=== PATIENT | female | born 1960 ===

== ENCOUNTER 2016-07-11 18:28 | Inpatient (IN) | payer OTHER ==
[2016-07-11 18:28] VITALS: BMI 38.6
[2016-07-11] MEDS ORDERED: Iohexol 240 (50 ml) PO ONE (19:38)
[2016-07-11] MEDS ORDERED: Sodium Chloride 0.9% 1,000 ML IV STA ×2 (19:39→23:34)
[2016-07-11 20:02] LABS: BASO # 0.1 K/uL (0.0-0.2); BASO % 1.2 % (0.0-2.0); EOS # 0.1 K/uL (0.0-0.7); HEMATOCRIT 41.2 % (34.0-47.0); LYMPH # 1.3 K/uL (1.0-4.3); LYMPH % 17.7 % (20.0-40.0); MEAN CELL VOLUME 88.3 fl (81.0-99.0); MEAN CORPUSCULAR HEMOGLOBIN 29.6 pg (27.0-31.0); MEAN CORPUSCULAR HGB CONC 33.6 g/dL (33.0-37.0); MEAN PLATELET VOLUME 9.1 fl (7.2-11.7); MONO # 0.6 K/uL (0.0-0.8); MONO % 7.8 % (0.0-10.0); NEUT # 5.2 K/uL (1.8-7.0); NEUT % 72.3 % (50.0-75.0); NRBC % 0.1 % (0.0-0.0); RED CELL DISTRIBUTION WIDTH 12.5 % (11.5-14.5); WHITE BLOOD COUNT 7.2 K/uL (4.8-10.8)
--- NOTE | 2016-07-11 20:02 | ED PDOC ---
"HPI: Abdomen Time Seen by Provider: 07/11/16 18:53 Chief Complaint (Nursing): Abdominal Pain Chief Complaint (Provider): Abdominal Pain History Per: Patient History/Exam Limitations: no limitations Onset/Duration Of Symptoms: Days (yesterday), Worse Since (today) Outside of [place] travel?: No Current Symptoms Are (Timing): Constant Severity: Moderate Location Of Pain/Discomfort: Epigastric Associated Symptoms: Vomiting, Diarrhea. denies: Fever, Back Pain, Urinary Symptoms (dysuria), Other (hematemesis, hematochezia) Additional Complaint(s): Erica White is a 56 year old female, with a past medical history of an abdominal hernia, who presents to the emergency department for the evaluation of constant, epigastric abdominal pain, that the patient has been experiencing since yesterday. No medications were taken prior to arrival to help alleviate her pain. Associated episodes of non-bloody vomiting and diarrhea are currently present. Denies a fever, back pain, or dysuria. PMD: Ranjeet Dominguez Past Medical History Reviewed: Historical Data, Nursing Documentation, Vital Signs Vital Signs: Last Vital Signs Temp 98.4 F 07/12/16 07:43 Pulse 114 H 07/12/16 07:43 Resp 20 07/12/16 07:43 BP 105/71 07/12/16 07:43 Pulse Ox 95 07/12/16 07:43 - Medical History PMH: Asthma, Diabetes, HTN, Mitral Valve Prolapse Denies: Chronic Kidney Disease Other PMH: Abdominal Hernial, Ovarian Cancer - Surgical History Surgical History: Cholecystectomy, Endoscopy, Tonsillectomy, Other surgeries: Hysterectomy, Thyroidectomy, Colonoscopy - Family History Family History: States: No Known Family Hx - Social History Current smoker - smoking cessation education provided: No Ex-Smoker (has not smoked in the last 12 months): No Alcohol: None Drugs: Denies - Home Medications Home Medications: Ambulatory Orders Medication Instructions Recorded Losartan [Cozaar] 25 mg PO DAILY 12/15/15 metFORMIN [glucOPHAGE] 500 mg PO BIDPC 12/15/15 Metoprolol Succinate [Toprol XL] 25 mg PO DAILY 07/12/16 - Allergies Allergies/Adverse Reactions: Allergies Allergy/AdvReac Type Severity Reaction Status Date / Time doxycycline calcium AdvReac RASH Verified 12/09/15 08:41 [From Vibramycin] doxycycline hyclate AdvReac RASH Verified 12/09/15 08:41 [From Vibramycin] doxycycline monohydrate AdvReac RASH Verified 12/09/15 08:41 [From Vibramycin] latex AdvReac SWELLING Verified 12/09/15 08:42 Review of Systems ROS Statement: Except As Marked, All Systems Reviewed And Found Negative Constitutional: Negative for: Fever Gastrointestinal: Positive for: Vomiting, Abdominal Pain (epigastric), Diarrhea. Negative for: Hematochezia, Hematemesis Genitourinary Female: Negative for: Dysuria Musculoskeletal: Negative for: Back Pain Physical Exam - Reviewed Nursing Documentation Reviewed: Yes Vital Signs Reviewed: Yes - Physical Exam Appears: Positive for: Non-toxic, No Acute Distress, Uncomfortable Head Exam: Positive for: ATRAUMATIC, NORMOCEPHALIC Skin: Positive for: Normal Color, Warm, Dry Cardiovascular/Chest: Positive for: Tachycardia (mild). Negative for: Regular Rate, Rhythm (regular rhythm), Murmur Respiratory: Positive for: Normal Breath Sounds. Negative for: Respiratory Distress Gastrointestinal/Abdominal: Positive for: Normal Exam, Soft, Tenderness ( epigastric), Other (umbilical hernia present) Back: Positive for: Normal Inspection. Negative for: L CVA Tenderness, R CVA Tenderness Neurologic/Psych: Positive for: Alert, Oriented - Laboratory Results Result Diagrams: 07/12/16 06:50 07/12/16 06:50 - ECG O2 Sat by Pulse Oximetry: 100 (RA) Pulse Ox Interpretation: Normal - Progress Re-evaluation Time: 23:00 Condition: Re-examined, Unchanged - Physician Consult Information Time Consulting Physican Contacted: 23:30 Physician Contacted: John Padron Medical Decision Making Medical Decision Makin:53 Initial Impression: Abdominal pain Differential Diagnoses include, but are not limited to, small bowel obstruction , acute pancreatitis, gastroenteritis, colitis, and complications of abdominal hernia. Initial Plan: * CT Abdomen & Pelvis * Electrocardiogram * Complete Blood Count * Comprehensive Metabolic Panel * Lipase * Lactic Acid, Plasma * Urine Dip * Morphine 4 mg IVP * Iohexol 50 ml PO * Zofran 4 mg IVP * Sodium Chloride 0.9% 1,000 ml IV at 1,000 mls/hr * Reevaluation FINDINGS: Lower thorax: No acute findings. ABDOMEN: Liver: Fatty infiltration. Gallbladder and bile ducts: Cholecystectomy. No ductal dilation. Pancreas: No ductal dilation. No mass. Spleen: No splenomegaly. Adrenals: No mass. Kidneys and ureters: Few RIGHT renal cysts. No hydronephrosis. Stomach and bowel: Gastric banding. Segmental areas of underdistention of colon. Small to moderate ventral hernia containing mildly dilated, stool-filled loop of small bowel. Several mildly dilated small bowel loops proximal to hernia. Nondistended small bowel distal to hernia. No definite mural thickening. Appendix: Normal caliber. No inflammation. PELVIS: Bladder: Unremarkable. Page 1 of 2 ERICA CUTLER | Final Radiology Report Reproductive: Hysterectomy. ABDOMEN and PELVIS: Intraperitoneal space: No significant fluid collection. No free air. Bones/ joints: No acute fracture. Soft tissues: Laparotomy scar. Tiny umbilical hernia containing fat. Vasculature : Unremarkable. No abdominal aortic aneurysm. Lymph nodes: No pathologically enlarged lymph nodes. IMPRESSION: 1. Ventral hernia containing small bowel with probable obstruction. 2. Incidental/non-acute findings are described above. Scribe Attestation: Documented by George Ayala, acting as a scribe for Belkys Young MD. Provider Scribe Attestation: All medical record entries made by the Scribe were at my direction and personally dictated by me. I have reviewed the chart and agree that the record accurately reflects my personal performance of the history, physical exam, medical decision making, and the department course for this patient. I have also personally directed, reviewed, and agree with the discharge instructions and disposition. Disposition - Clinical Impression Clinical Impression: SBO (small bowel obstruction), Ventral hernia - Patient ED Disposition Is Patient to be Admitted: Yes Discussed With : Ranjeet Dominguez Doctor Will See Patient In The: ED Counseled Patient/Family Regarding: Studies Performed, Diagnosis - Disposition Disposition Time: 23:30 Condition: FAIR - Pt Status Changed To: Hospital Disposition Of: Inpatient - Admit Certification Admit to Inpatient:: After my assessment, the patient will require hospitalization for at least two midnights. This is because of the severity of symptoms shown, intensity of services needed, and/or the medical risk in this patient being treated as an outpatient. - POA Present On Arrival: None"
[2016-07-11 20:24] LABS: ALB/GLOB RATIO 1.3 (1.0-2.1); ALKALINE PHOSPHATASE 101 U/L (38-126); ALT/SGPT 87 U/L (9-52); AST/SGOT 50 U/L (14-36); BILIRUBIN,TOTAL 0.4 mg/dl (0.2-1.3); BLOOD UREA NITROGEN 14 mg/dl (7-17); CALCIUM 9.7 mg/dL (8.4-10.2); CARBON DIOXIDE 29 mmol/L (22-30); CHLORIDE 103 mmol/L (98-107); GFR AFRICAN-AMERICAN > 60; GLUCOSE,RANDOM 130 mg/dL (65-105); LIPASE 228 U/L (23-300); POTASSIUM 4.5 MMOL/L (3.6-5.0); SODIUM 141 mmol/l (132-148)
[2016-07-11] MEDS ORDERED: Iohexol 240 (50 ml) ONE (20:35)
[2016-07-11] MEDS ORDERED: Sodium Chloride 0.9% 50 ML IV ONE (22:33)
[2016-07-11] MEDS ORDERED: Iohexol 300 100 ML IJ ONE (22:33)
--- NOTE | 2016-07-11 23:29 | CT ---
EXAM: CT Abdomen and Pelvis With Intravenous Contrast CLINICAL HISTORY: 56 years old, female; Pain; Abdominal pain; Generalized; Prior surgery; Surgery date: 6+ months; Surgery type: Cholecystectomy, lap band, , hysterectomy; Additional info: Abdominal pain HX of hernia TECHNIQUE: Axial computed tomography images of the abdomen and pelvis with intravenous contrast. This CT exam was performed using one or more of the following dose reduction techniques: automated exposure control, adjustment of the mA and/or kV according to patient size, and/or use of iterative reconstruction technique. Coronal and sagittal reformatted images were created and reviewed. CONTRAST: 100 mL of Omnipaque administered intravenously. COMPARISON: CT - ABD PELVIS PO IV CONTRAST 05/20/2015 10:52:00 AM FINDINGS: Lower thorax: No acute findings. ABDOMEN: Liver: Fatty infiltration. Gallbladder and bile ducts: Cholecystectomy. No ductal dilation. Pancreas: No ductal dilation. No mass. Spleen: No splenomegaly. Adrenals: No mass. Kidneys and ureters: Few RIGHT renal cysts. No hydronephrosis. Stomach and bowel: Gastric banding. Segmental areas of underdistention of colon. Small to moderate ventral hernia containing mildly dilated, stool-filled loop of small bowel. Several mildly dilated small bowel loops proximal to hernia. Nondistended small bowel distal to hernia. No definite mural thickening. Appendix: Normal caliber. No inflammation. PELVIS: Bladder: Unremarkable. Reproductive: Hysterectomy. ABDOMEN and PELVIS: Intraperitoneal space: No significant fluid collection. No free air. Bones/joints: No acute fracture. Soft tissues: Laparotomy scar. Tiny umbilical hernia containing fat. Vasculature: Unremarkable. No abdominal aortic aneurysm. Lymph nodes: No pathologically enlarged lymph nodes. IMPRESSION: 1. Ventral hernia containing small bowel with probable obstruction. 2. Incidental/non-acute findings are described above.
[2016-07-11] MEDS ORDERED: Ciprofloxacin 400mg/200ml D5W 400 MG/200 ML BAG IVPB STA (23:52)
[2016-07-11] MEDS ORDERED: metroNIDAZOLE 500mg/100ml NS 100 ML IVPB STA (23:53)
[2016-07-12] MEDS ORDERED: metroNIDAZOLE 500mg/100ml NS 100 ML IVPB ONE (00:11)
[2016-07-12] MEDS ORDERED: Ciprofloxacin 400mg/200ml D5W 400 MG/200 ML BAG IVPB ONE (01:09)
--- NOTE | 2016-07-12 07:52 | CP.PCM.CON ---
<Hermelinda Dover - Last Filed: 07/12/16 07:45> History of Present Illness - History of Present Illness History of Present Illness: Surgery Consult: Dr. Padron Pt is a 56F with PMHx significant for DM and HTN who presented to [facility] with complaints of abdominal pain & N/V for 1 day. Pt states she started having severe generalized abdominal pain yesterday after eating with several episodes of non-bloody vomiting. She states she has had 1 similar episode in the past that was treated conservatively. Pt states her last BM was yesterday around 5PM and denies flatus. Pt admits to having a ventral hernia for about 2 years after she had her hysterectomy and has seen surgeons for possible repair. However, she was told her gastric band would need to be removed and she needs to loose weight before the hernia can be repaired which has delayed intervention. In the ER, a CT abdomen/pelvis was obtained which shows ventral hernia with loops of SB and possible obstruction. Surgery consulted to evaluate. Currently, pt states her pain has improved and she has not had any more episodes of vomiting. She continues to deny flatus or BM. Denies F/C, chest pain or SOB. PMHx: HTN, DM, Ovarian CA, Breast CA s/p radiation PSHx: LORENA-BSO, left breast mass excision, Gastric Band SocialHx: denies smoking or EtOH Review of Systems - Review of Systems All systems: reviewed and no additional remarkable complaints except (as per HPI ) Past Patient History - Infectious Disease Hx of Infectious Diseases: None - Past Medical History & Family History Past Medical History?: Yes - Past Social History Alcohol: None Drugs: Denies - CARDIAC Hx Cardiac Disorders: Yes Hx Hypertension: Yes - HEENT Other/Comment: uses contact lenses - RENAL Hx Chronic Kidney Disease: No - ENDOCRINE/METABOLIC Hx Endocrine Disorders: Yes Hx Diabetes Mellitus Type 2: Yes - GASTROINTESTINAL Hx Gastrointestinal Disorders: Yes (LAP BAND DONE 10 YEARS AGO) - GENITOURINARY/GYNECOLOGICAL Hx Ovarian Cancer: Yes - PSYCHIATRIC Hx Psychophysiologic Disorder: No - SURGICAL HISTORY Hx Surgeries: Yes Hx Section: Yes Hx Cholecystectomy: Yes Hx Hysterectomy: Yes - ANESTHESIA Hx Anesthesia: Yes Hx Anesthesia Reactions: Yes (N/V) Hx Malignant Hyperthermia: No Has any member of the family had a problem w/ anesthesia?: No Meds Allergies/Adverse Reactions: Allergies Allergy/AdvReac Type Severity Reaction Status Date / Time doxycycline calcium AdvReac RASH Verified 12/09/15 08:41 [From Vibramycin] doxycycline hyclate AdvReac RASH Verified 12/09/15 08:41 [From Vibramycin] doxycycline monohydrate AdvReac RASH Verified 12/09/15 08:41 [From Vibramycin] latex AdvReac SWELLING Verified 12/09/15 08:42 - Medications Medications: Current Medications Dextrose/Sodium Chloride (Dextrose 5%-0.9% Ns 500 Ml) 500 mls @ 85 mls/hr IV .Q5H53M [facility] Stop: 07/13/16 05:58 Ciprofloxacin (Cipro 400mg/200ml Dsw) 400 mg in 200 mls @ 200 mls/hr IVPB Q12 [facility] Metronidazole (Flagyl 500mg/100ml Ns) 100 mls @ 100 mls/hr IVPB Q8 [facility] Insulin Human Regular (Humulin R) 0 units SC ACCU-CHECK [facility] PRN Reason: Protocol Ketorolac Tromethamine (Toradol) 15 mg IVP Q6 PRN PRN Reason: Pain, moderate (4-7) Last Admin: 07/12/16 06:26 Dose: 15 mg Ondansetron HCl (Zofran Inj) 4 mg IVP Q4 PRN PRN Reason: Nausea/Vomiting Last Admin: 07/12/16 02:28 Dose: 4 mg Physical Exam - Constitutional Appears: Well, No Acute Distress - Head Exam Head Exam: ATRAUMATIC, NORMOCEPHALIC - Eye Exam Eye Exam: Normal appearance - ENT Exam Additional comments: NGT in place with 125cc of yellow output in canister since placement - Respiratory Exam Respiratory Exam: NORMAL BREATHING PATTERN - Cardiovascular Exam Cardiovascular Exam: Tachycardia - GI/Abdominal Exam GI & Abdominal Exam: Diminished Bowel Sounds, Soft, Tenderness (over ventral hernia ). absent: Distended, Guarding, Rebound - Extremities Exam Extremities exam: Positive for: pedal pulses present - Neurological Exam Neurological exam: Alert, Oriented x3 - Skin Skin Exam: Dry, Warm Results - Vital Signs Recent Vital Signs: Last Vital Signs Temp 98.4 F 07/12/16 07:43 Pulse 114 H 07/12/16 07:43 Resp 20 07/12/16 07:43 BP 105/71 07/12/16 07:43 Pulse Ox 95 07/12/16 07:43 - Labs Result Diagrams: 07/11/16 19:54 07/11/16 19:54 Labs: Laboratory Results - last 24 hr 07/12/16 06:31 POC Glucose (mg/dL) 163 H - Imaging and Cardiology CT scan - abdomen Status: Image reviewed by me, Report reviewed by me Assessment & Plan - Assessment and Plan (Free Text) Assessment: 56F with SBO Plan: - NGT in place; monitor output - serial abdominal exams - monitor for bowel function - encourage ambulation - d/w Dr. Vito Dover, PGY-2 Surgery <Stepan Infante - Last Filed: 07/12/16 10:39> History of Present Illness - History of Present Illness History of Present Illness: Patient was seen and examined at the bedside. Agree with resident's note above. Meds - Medications Medications: Current Medications Dextrose/Sodium Chloride (Dextrose 5%-0.9% Ns 500 Ml) 500 mls @ 85 mls/hr IV .Q5H53M [facility] Stop: 07/13/16 05:58 Last Admin: 07/12/16 08:42 Dose: 85 mls/hr Ciprofloxacin (Cipro 400mg/200ml Dsw) 400 mg in 200 mls @ 200 mls/hr IVPB Q12 [facility] Last Admin: 07/12/16 10:06 Dose: 200 mls/hr Metronidazole (Flagyl 500mg/100ml Ns) 100 mls @ 100 mls/hr IVPB Q8 [facility] Last Admin: 07/12/16 08:44 Dose: 100 mls/hr Insulin Human Regular (Humulin R) 0 units SC ACCU-CHECK [facility] PRN Reason: Protocol Last Admin: 07/12/16 08:45 Dose: 1 unit Ketorolac Tromethamine (Toradol) 15 mg IVP Q6 PRN PRN Reason: Pain, moderate (4-7) Last Admin: 07/12/16 06:26 Dose: 15 mg Ondansetron HCl (Zofran Inj) 4 mg IVP Q4 PRN PRN Reason: Nausea/Vomiting Last Admin: 07/12/16 02:28 Dose: 4 mg Physical Exam - GI/Abdominal Exam Additional comments: incarcerated supra-umbilical ventral hernia, tender over the the hernia, no rebound, no guarding Results - Vital Signs Recent Vital Signs: Last Vital Signs Temp 98.4 F 07/12/16 07:43 Pulse 114 H 07/12/16 07:43 Resp 20 07/12/16 07:43 BP 105/71 07/12/16 07:43 Pulse Ox 95 07/12/16 07:43 - Labs Result Diagrams: 07/12/16 06:50 07/12/16 06:50 Labs: Laboratory Results - last 24 hr 07/12/16 07/12/16 07/12/16 06:31 06:50 06:50 WBC 15.4 H D RBC 4.53 Hgb 13.2 Hct 40.0 MCV 88.3 MCH 29.1 MCHC 33.0 RDW 12.2 Plt Count 218 Sodium 141 Potassium 4.2 Chloride 103 Carbon Dioxide 26 Anion Gap 16 BUN 14 Creatinine 0.8 Est GFR ( Amer) > 60 Est GFR (Non-Af Amer) > 60 POC Glucose (mg/dL) 163 H Random Glucose 155 H Calcium 9.1 TSH 3rd Generation 0.84 Assessment & Plan - Assessment and Plan (Free Text) Assessment: 56 y.o. female with incarcerated ventral hernia Plan: - Keep NPO - IV fluids - NG tube to low continuous wall suction - Pain control - To OR for repair of incarcerated Ventral hernia
[2016-07-12 08:09] LABS: MEAN CELL VOLUME 88.3 fl (81.0-99.0); MEAN CORPUSCULAR HEMOGLOBIN 29.1 pg (27.0-31.0); RED CELL DISTRIBUTION WIDTH 12.2 % (11.5-14.5); WHITE BLOOD COUNT 15.4 K/uL (4.8-10.8)
[2016-07-12 08:19] LABS: BLOOD UREA NITROGEN 14 mg/dl (7-17); CALCIUM 9.1 mg/dL (8.4-10.2); CARBON DIOXIDE 26 mmol/L (22-30); CHLORIDE 103 mmol/L (98-107); GFR AFRICAN-AMERICAN > 60; GLUCOSE,RANDOM 155 mg/dL (65-105); POTASSIUM 4.2 MMOL/L (3.6-5.0); SODIUM 141 mmol/l (132-148)
[2016-07-12 08:45] LABS: THYROID STIMULATING HORMONE 0.84 mIU/ML (0.46-4.68)
[2016-07-12] MEDS: Insulin Regular 100 units/ml SC SCH ×3 (08:45→22:33)
--- NOTE | 2016-07-12 08:53 | CP.PCM.HP ---
History of Present Illness - History of Present Illness History of Present Illness: 56 y/o lady presented in ER with hx of abdominal pain and n/v x 1 day. No BM, no flatus. Hx of DM2, HTN, ca ovary, ca breast. CT scan reveled ventral hernia with obstruction. Present on Admission - Present on Admission Any Indicators Present on Admission: No Review of Systems - Constitutional Constitutional: As Per HPI - EENT Eyes: As Per HPI - Breasts Breasts: As Per HPI - Cardiovascular Cardiovascular: As Per HPI - Respiratory Respiratory: As Per HPI - Gastrointestinal Gastrointestinal: Nausea, Vomiting - Genitourinary Genitourinary: As Per HPI - Musculoskeletal Musculoskeletal: As Per HPI - Integumentary Integumentary: As Per HPI - Neurological Neurological: As Per HPI - Psychiatric Psychiatric: As Per HPI Past Patient History - Infectious Disease Hx of Infectious Diseases: None - Past Medical History & Family History Past Medical History?: Yes - Past Social History Alcohol: None Drugs: Denies - CARDIAC Hx Cardiac Disorders: Yes Hx Hypertension: Yes - PULMONARY Hx Respiratory Disorders: Yes Hx Asthma: Yes - NEUROLOGICAL Hx Neurological Disorder: No - HEENT Other/Comment: uses contact lenses - RENAL Hx Chronic Kidney Disease: No - ENDOCRINE/METABOLIC Hx Endocrine Disorders: Yes Hx Diabetes Mellitus Type 2: Yes - HEMATOLOGICAL/ONCOLOGICAL Hx Blood Disorders: Yes - INTEGUMENTARY Hx Dermatological Problems: No - MUSCULOSKELETAL/RHEUMATOLOGICAL Hx Musculoskeletal Disorders: No Hx Falls: No - GASTROINTESTINAL Hx Gastrointestinal Disorders: Yes (LAP BAND DONE 10 YEARS AGO) - GENITOURINARY/GYNECOLOGICAL Hx Ovarian Cancer: Yes - PSYCHIATRIC Hx Psychophysiologic Disorder: No - SURGICAL HISTORY Hx Surgeries: Yes Hx Section: Yes Hx Cholecystectomy: Yes Hx Hysterectomy: Yes - ANESTHESIA Hx Anesthesia: Yes Hx Anesthesia Reactions: Yes (N/V) Hx Malignant Hyperthermia: No Has any member of the family had a problem w/ anesthesia?: No Meds Allergies/Adverse Reactions: Allergies Allergy/AdvReac Type Severity Reaction Status Date / Time doxycycline calcium AdvReac RASH Verified 12/09/15 08:41 [From Vibramycin] doxycycline hyclate AdvReac RASH Verified 12/09/15 08:41 [From Vibramycin] doxycycline monohydrate AdvReac RASH Verified 12/09/15 08:41 [From Vibramycin] latex AdvReac SWELLING Verified 12/09/15 08:42 Physical Exam - Constitutional Appears: In Acute Distress - Head Exam Head Exam: ATRAUMATIC, NORMAL INSPECTION, NORMOCEPHALIC - Eye Exam Eye Exam: EOMI, Normal appearance, PERRL - ENT Exam ENT Exam: Mucous Membranes Moist - Respiratory Exam Respiratory Exam: Clear to Auscultation Bilateral - Cardiovascular Exam Cardiovascular Exam: REGULAR RHYTHM, +S1, +S2 - GI/Abdominal Exam GI & Abdominal Exam: Distended, Guarding, Tenderness - Extremities Exam Extremities exam: Positive for: normal inspection - Neurological Exam Neurological exam: Alert, CN II-XII Intact, Oriented x3 - Psychiatric Exam Psychiatric exam: Normal Affect - Skin Skin Exam: Normal Color Results - Vital Signs Recent Vital Signs: Last Vital Signs Temp 98.4 F 07/12/16 07:43 Pulse 114 H 07/12/16 07:43 Resp 20 07/12/16 07:43 BP 105/71 07/12/16 07:43 Pulse Ox 95 07/12/16 07:43 - Labs Result Diagrams: 07/12/16 06:50 07/12/16 06:50 Labs: Laboratory Results - last 24 hr 07/12/16 07/12/16 07/12/16 06:31 06:50 06:50 WBC 15.4 H D RBC 4.53 Hgb 13.2 Hct 40.0 MCV 88.3 MCH 29.1 MCHC 33.0 RDW 12.2 Plt Count 218 Sodium 141 Potassium 4.2 Chloride 103 Carbon Dioxide 26 Anion Gap 16 BUN 14 Creatinine 0.8 Est GFR ( Amer) > 60 Est GFR (Non-Af Amer) > 60 POC Glucose (mg/dL) 163 H Random Glucose 155 H Calcium 9.1 TSH 3rd Generation 0.84 Assessment & Plan (1) Diabetes 1.5, managed as type 2 Status: Chronic (2) Hypertensive cardiovascular disease Status: Chronic (3) Abdominal hernia with obstruction Status: Acute (4) Abdominal pain Status: Acute (5) Obesity (BMI 35.0-39.9 without comorbidity) Status: Chronic - Assessment and Plan (Free Text) Plan: Continue present rx Will follow surgical consult.
[2016-07-12] MEDS ORDERED: metroNIDAZOLE 500mg/100ml NS 100 ML IVPB SCH (09:00)
[2016-07-12] MEDS ORDERED: Ciprofloxacin 400mg/200ml D5W 400 MG/200 ML BAG IVPB SCH (09:00)
[2016-07-12] MEDS ORDERED: Rocuronium 10 mg/ml (5 ml) ONE ×2 (10:37→12:08)
[2016-07-12] MEDS ORDERED: Propofol 10 mg/ml Inj (20 ML) ONE ×2 (10:37→13:15)
[2016-07-12] MEDS ORDERED: Midazolam 2 MG/2 ML VIAL ONE (10:37)
[2016-07-12] MEDS ORDERED: Succinylcholine 200 mg/10 ml Inj IV ONE (10:37)
[2016-07-12] MEDS ORDERED: Bupivacaine 0.5% Inj(30mL) ONE (10:50)
[2016-07-12] MEDS ORDERED: Lidocaine 1% Inj (20ml) ONE (10:50)
[2016-07-12] MEDS ORDERED: Lactated Ringer's 1,000 ML IV ONE ×5 (10:59→15:55)
--- NOTE | 2016-07-12 11:04 | RAD ---
PROCEDURE: CHEST RADIOGRAPH, 1 VIEW HISTORY: pre op COMPARISON: 09/04/2015 FINDINGS: LUNGS: Clear. PLEURA: No pneumothorax or pleural fluid seen. CARDIOVASCULAR: Normal. OSSEOUS STRUCTURES: No significant abnormalities. VISUALIZED UPPER ABDOMEN: Normal. OTHER FINDINGS: Nasogastric tube extends to left upper quadrant of abdomen. IMPRESSION: No pulmonary infiltrate. No pleural effusion. Nasogastric tube present extending to left upper quadrant of abdomen.
[2016-07-12] MEDS ORDERED: Phenylephrine 10 mg/ml Inj ONE (11:54)
[2016-07-12] MEDS ORDERED: Neostigmine Methylsulfate 2 MG/2 ML ML IV ONE (12:57)
[2016-07-12] MEDS ORDERED: Neostigmine Methylsulfate 3mg/3ml Syringe IV ONE (12:57)
[2016-07-12] MEDS ORDERED: Sodium Chloride 0.9% 1,000 ML IV ONE ×2 (13:36)
[2016-07-12] MEDS ORDERED: DiphenhydrAMINE 50 mg/ml Inj IVP PRN (13:41)
[2016-07-12] MEDS ORDERED: Naloxone 0.4 mg/ml Inj (Adult) IVP PRN (13:41)
--- NOTE | 2016-07-12 13:44 | PCM.SURG1 ---
Surgeon's Initial Post Op Note - Surgeon's Notes Surgeon: Dr. Infante Lap Hand Tool: Dr. Coughlin PGY-2, Dr. Diaz PGY-1 Type of Anesthesia: General Endo Pre-Operative Diagnosis: Incarcerated incisional hernia Operative Findings: see operative report Post-Operative Diagnosis: same Operation Performed: 1. lysis of adhesions. 2. incisional hernia repair w/ mesh Specimen/Specimens Removed: hernia sac Estimated Blood Loss: EBL {In ML}: 50 Blood Products Given: N/A Drains Used: No Drains Post-Op Condition: Good Date of Surgery/Procedure: 07/12/16 Time of Surgery/Procedure: 12:00
[2016-07-12] MEDS: HYDROmorphone 0.5 mg/0.5 ml ISec IVP PRN ×2 (14:10→14:55)
--- NOTE | 2016-07-12 14:15 | OP ---
PROCEDURE DATE: 07/12/2016 PREOPERATIVE DIAGNOSIS: Incarcerated incisional hernia. POSTOPERATIVE DIAGNOSIS: Incarcerated incisional hernia. PROCEDURES: Repair of the incarcerated incisional hernia as well was extensive lysis of adhesions an d placement of the mesh. SURGEON: Stepan Infante MD PEDIATRIC RN: Ced. SECOND PEDIATRIC RN: Joe. ANESTHESIA: General with endotracheal intubation. INTRAVENOUS FLUIDS: Crystalloids. ESTIMATED BLOOD LOSS: 50 mL. INTRAOPERATIVE FINDINGS: Incarcerated incisional hernia with viable bowel and extensive intraabdomin al adhesions. SPECIMEN: Hernia sac. BRIEF HISTORY: The patient is a pleasant 56-year-old female who presented to the hospital complainin g of 1 day duration of severe pain around her hernia site/incisional hernia that she had after a hyst erectomy for the past 2 years. The patient also reported some nausea and vomiting and obstipation. Also CAT scan was significant for incarcerated small bowel and an incisional hernia supraumbilically. All the risks and benefits of the procedure were explained to the patient and, with the patient hav ing a full understanding of all the risks and benefits involved, informed consent was obtained and th e patient was taken to the operating room for above stated procedure. PROCEDURE: The patient was brought into the operating room and placed supine on the operating table. Bilateral Flowtron boots were applied to patient's lower extremities. After successful induction o f anesthesia and successful endotracheal intubation by the anesthesia team, Addison catheter was insert ed into the patient's urinary bladder, and subsequent to that the patient's abdomen was prepped with ChloraPrep stick and draped in the standard surgical fashion. Prior to the beginning of the procedur e, a timeout was called in the room and everyone in the room was in agreement. The patient received prophylactic Ancef antibiotics. Once this was accomplished, using a 10 blade scalpel knife, approxim ately 10 cm incision was made right on top of the hernia supraumbilically. Subsequent to that, disse ction was carried down with electrical cautery until the hernia sac was visualized. The hernia sac w as dissected off from the surrounding subcutaneous structures and then the hernia sac was opened and the intestine was inspected. There appeared to be extensive adhesions to the hernia sac. They were taken down bluntly as well as sharply with Metzenbaum scissor. I spent approximately 45 minutes lysi ng the adhesions from the hernia sac and anterior abdominal wall. Once all the adhesions were lysed and the bowel was completely freed up from the anterior abdominal wall, we made a decision to use 15 x 20 Covidien Symbotex dual-sided composite mesh. Mesh was placed inside of the patient's abdomen wi th the nonsticky side towards the bowel and, subsequent to that, the mesh was secured to the fascia c ircumferentially with #1 PDS in an interrupted fashion. Once this was accomplished, the sutures were tied up and the gaps in between the sutures were filled in with #1 PDS suture in an interrupted fash ion. Once the position of the mesh was satisfactory, the wound was copiously irrigated and dried, an d fascial layer was closed with a #1 PDS right on top of the mesh, and subsequent to that several shantal p dermal sutures with 3-0 Vicryl were placed and skin was closed with brendan. At that point in time , the patient's abdomen was washed and dried, and a clean dressing was applied to the incision site. The patient was successfully extubated by the anesthesia team, transferred to the stretcher and take n to the recovery room in a stable condition. At the end of the procedure, all instrument counts, ne edles and sponges were correct. Stepan Infante MD cc: [id number] TT: 07/12/2016 14:14:36 [email or web address]
--- NOTE | 2016-07-12 16:45 | CARD ---
APPROVED REPORT EKG Measurement Heart [id number] <Conclusion> Normal sinus rhythm Normal ECG
[2016-07-12] MEDS: metroNIDAZOLE 500mg/100ml NS 100 ML IVPB SCH (17:56)
[2016-07-12] MEDS: Dextrose 5%/0.9% NS 1,000 ML IV SCH (22:34)
[2016-07-12 23:43] LABS: RBC URINE 4 /hpf (0-3); URINE BACTERIA FEW (<OCC); URINE BILIRUBIN NEGATIVE (NEGATIVE); URINE BLOOD NEGATIVE (NEGATIVE); URINE COLOR YELLOW (YELLOW); URINE GLUCOSE (UA) NEG (Normal); URINE KETONE NEGATIVE (NEGATIVE); URINE LEUKOCYTE ESTERASE TRACE Leu/uL (Negative); URINE PROTEIN NEGATIVE (NEGATIVE); URINE UROBILINOGEN 0.2-1.0 mg/dL (0.2-1.0); WBC URINE 4 /hpf (0-5)
[2016-07-13] MEDS: metroNIDAZOLE 500mg/100ml NS 100 ML IVPB SCH ×2 (00:32→08:45)
[2016-07-13] MEDS: Dextrose 5%/0.9% NS 1,000 ML IV SCH (06:06)
[2016-07-13] MEDS: Insulin Regular 100 units/ml SC SCH ×3 (06:36→16:58)
[2016-07-13 07:19] LABS: HEMATOCRIT 37.5 % (34.0-47.0); MEAN CELL VOLUME 88.6 fl (81.0-99.0); MEAN CORPUSCULAR HEMOGLOBIN 29.4 pg (27.0-31.0); MEAN CORPUSCULAR HGB CONC 33.2 g/dL (33.0-37.0); RED CELL DISTRIBUTION WIDTH 12.4 % (11.5-14.5); WHITE BLOOD COUNT 9.5 K/uL (4.8-10.8)
[2016-07-13 07:48] LABS: BLOOD UREA NITROGEN 7 mg/dl (7-17); CALCIUM 8.1 mg/dL (8.4-10.2); CARBON DIOXIDE 27 mmol/L (22-30); CHLORIDE 104 mmol/L (98-107); GFR AFRICAN-AMERICAN > 60; GLUCOSE,RANDOM 145 mg/dL (65-105); POTASSIUM 3.8 MMOL/L (3.6-5.0); SODIUM 137 mmol/l (132-148)
[2016-07-13] MEDS: Lactated Ringer's 1,000 ML IV SCH ×3 (08:45→23:50)
--- NOTE | 2016-07-13 09:16 | CP.PCM.PN ---
<Speedy Diaz - Last Filed: 07/13/16 09:25> Subjective - Date & Time of Evaluation Date of Evaluation: 07/13/16 Time of Evaluation: 07:15 - Subjective Subjective: Patient seen and examined this morning. Complaining of abdominal pain, using VENUE MANAGER. NGT output: 50cc/24hrs. 1.9L/24hrs Addison output. Objective - Vital Signs/Intake and Output Vital Signs (last 24 hours): Temp Pulse Resp BP Pulse Ox 98.9 F 105 H 18 121/73 97 07/13/16 04:36 07/13/16 04:36 07/13/16 04:36 07/13/16 04:36 07/13/16 04:36 Intake and Output: 07/13/16 07/13/16 06:59 18:59 Intake Total 2800 Output Total 1550 Balance 1250 - Medications Medications: Current Medications Diphenhydramine HCl (Benadryl) 25 mg IVP Q6 PRN PRN Reason: Itching / Pruritus Famotidine (Pepcid) 20 mg IVP DAILY [facility] Hydromorphone HCl (Dilaudid 0.2 Mg/Ml Strategic Intelligence Officer) 0 mg IV PRN PRN; Protocol PRN Reason: Pain, severe (8-10) Last Admin: 07/12/16 16:00 Dose: 0.2 mg Lactated Ringer's (Lactated Ringer's) 1,000 mls @ 150 mls/hr IV .Q6H40M [facility] Last Admin: 07/13/16 08:45 Dose: 150 mls/hr Metronidazole (Flagyl 500mg/100ml Ns) 100 mls @ 100 mls/hr IVPB Q8 [facility] Last Admin: 07/13/16 08:45 Dose: 100 mls/hr Insulin Human Regular (Humulin R) 0 units SC ACCU-CHECK [facility] PRN Reason: Protocol Last Admin: 07/13/16 06:36 Dose: 1 unit Ketorolac Tromethamine (Toradol) 15 mg IVP Q6 PRN PRN Reason: Pain, moderate (4-7) Last Admin: 07/12/16 06:26 Dose: 15 mg Naloxone HCl (Narcan) 0.1 mg IVP Q2M PRN PRN Reason: Shortness of Breath Ondansetron HCl (Zofran Inj) 4 mg IVP Q4 PRN PRN Reason: Nausea/Vomiting Last Admin: 07/12/16 02:28 Dose: 4 mg Ondansetron HCl (Zofran Inj) 4 mg IVP Q8 PRN PRN Reason: Nausea/Vomiting - Labs Labs: 07/13/16 05:55 07/13/16 05:55 - Constitutional Appears: No Acute Distress - ENT Exam ENT Exam: Mucous Membranes Dry - Respiratory Exam Respiratory Exam: NORMAL BREATHING PATTERN - Cardiovascular Exam Cardiovascular Exam: Tachycardia, +S1, +S2 - GI/Abdominal Exam GI & Abdominal Exam: Soft, Tenderness. absent: Firm, Guarding, Rigid - Neurological Exam Neurological Exam: Alert, Awake, Oriented x3 - Psychiatric Exam Psychiatric exam: Normal Mood - Skin Skin Exam: Intact, Warm Assessment and Plan - Assessment and Plan (Free Text) Assessment: 56F s/p open incision hernia repair w/ mesh placement -NPO -IVF -D/C Addison Catheter -Abdominal binder -C/w analgesic -Encourage incentive spirometer use -OOB to chair -Encourage ambulation -Further recs per Dr. Infante <Stepan Infante - Last Filed: 07/13/16 10:06> Subjective - Date & Time of Evaluation Time of Evaluation: 10:00 - Subjective Subjective: Patient was seen and examined at the bedside. Agree with resident's note above. Objective - Vital Signs/Intake and Output Vital Signs (last 24 hours): Temp Pulse Resp BP Pulse Ox 99.4 F 117 H 18 109/65 96 07/13/16 09:57 07/13/16 09:57 07/13/16 09:57 07/13/16 09:57 07/13/16 09:57 Intake and Output: 07/13/16 07/13/16 06:59 18:59 Intake Total 2800 Output Total 1550 Balance 1250 - Medications Medications: Current Medications Diphenhydramine HCl (Benadryl) 25 mg IVP Q6 PRN PRN Reason: Itching / Pruritus Enoxaparin Sodium (Lovenox) 40 mg SC DAILY [facility] PRN Reason: Protocol Famotidine (Pepcid) 20 mg IVP DAILY [facility] Hydromorphone HCl (Dilaudid 0.2 Mg/Ml Strategic Intelligence Officer) 0 mg IV PRN PRN; Protocol PRN Reason: Pain, severe (8-10) Last Admin: 07/12/16 16:00 Dose: 0.2 mg Lactated Ringer's (Lactated Ringer's) 1,000 mls @ 150 mls/hr IV .Q6H40M [facility] Last Admin: 07/13/16 08:45 Dose: 150 mls/hr Metronidazole (Flagyl 500mg/100ml Ns) 100 mls @ 100 mls/hr IVPB Q8 [facility] Last Admin: 07/13/16 08:45 Dose: 100 mls/hr Insulin Human Regular (Humulin R) 0 units SC ACCU-CHECK [facility] PRN Reason: Protocol Last Admin: 07/13/16 06:36 Dose: 1 unit Ketorolac Tromethamine (Toradol) 15 mg IVP Q6 PRN PRN Reason: Pain, moderate (4-7) Last Admin: 07/12/16 06:26 Dose: 15 mg Naloxone HCl (Narcan) 0.1 mg IVP Q2M PRN PRN Reason: Shortness of Breath Ondansetron HCl (Zofran Inj) 4 mg IVP Q4 PRN PRN Reason: Nausea/Vomiting Last Admin: 07/12/16 02:28 Dose: 4 mg Ondansetron HCl (Zofran Inj) 4 mg IVP Q8 PRN PRN Reason: Nausea/Vomiting - Labs Labs: 07/13/16 05:55 07/13/16 05:55
--- NOTE | 2016-07-13 12:02 | CP.PCM.PN ---
Subjective - Date & Time of Evaluation Date of Evaluation: 07/13/16 Time of Evaluation: 12:05 - Subjective Subjective: Patient still c/o abdominal pain no BM no flatus, NGT in place. Post OP ileus, continue iv fluid NPO. Objective - Vital Signs/Intake and Output Vital Signs (last 24 hours): Temp Pulse Resp BP Pulse Ox 99.4 F 117 H 18 109/65 96 07/13/16 09:57 07/13/16 09:57 07/13/16 09:57 07/13/16 09:57 07/13/16 09:57 Intake and Output: 07/13/16 07/13/16 11:59 23:59 Intake Total 1800 Output Total 2350 Balance -550 - Medications Medications: Current Medications Diphenhydramine HCl (Benadryl) 25 mg IVP Q6 PRN PRN Reason: Itching / Pruritus Enoxaparin Sodium (Lovenox) 40 mg SC DAILY [facility] PRN Reason: Protocol Famotidine (Pepcid) 20 mg IVP DAILY [facility] Hydromorphone HCl (Dilaudid 0.2 Mg/Ml Bi Developer) 0 mg IV PRN PRN; Protocol PRN Reason: Pain, severe (8-10) Last Admin: 07/12/16 16:00 Dose: 0.2 mg Lactated Ringer's (Lactated Ringer's) 1,000 mls @ 150 mls/hr IV .Q6H40M [facility] Last Admin: 07/13/16 08:45 Dose: 150 mls/hr Metronidazole (Flagyl 500mg/100ml Ns) 100 mls @ 100 mls/hr IVPB Q8 [facility] Last Admin: 07/13/16 08:45 Dose: 100 mls/hr Insulin Human Regular (Humulin R) 0 units SC ACCU-CHECK [facility] PRN Reason: Protocol Last Admin: 07/13/16 06:36 Dose: 1 unit Ketorolac Tromethamine (Toradol) 15 mg IVP Q6 PRN PRN Reason: Pain, moderate (4-7) Last Admin: 07/12/16 06:26 Dose: 15 mg Metoprolol Tartrate (Lopressor) 12.5 mg PO Q12 [facility] Naloxone HCl (Narcan) 0.1 mg IVP Q2M PRN PRN Reason: Shortness of Breath Ondansetron HCl (Zofran Inj) 4 mg IVP Q4 PRN PRN Reason: Nausea/Vomiting Last Admin: 07/12/16 02:28 Dose: 4 mg Ondansetron HCl (Zofran Inj) 4 mg IVP Q8 PRN PRN Reason: Nausea/Vomiting - Labs Labs: 07/13/16 05:55 07/13/16 05:55 - Head Exam Head Exam: ATRAUMATIC, NORMAL INSPECTION, NORMOCEPHALIC - Eye Exam Eye Exam: EOMI, Normal appearance - ENT Exam ENT Exam: Mucous Membranes Moist - Neck Exam Neck Exam: Full ROM - Respiratory Exam Respiratory Exam: Clear to Ausculation Bilateral - Cardiovascular Exam Cardiovascular Exam: Tachycardia, REGULAR RHYTHM, +S1, +S2 - GI/Abdominal Exam GI & Abdominal Exam: Hypoactive Bowel Sounds - Extremities Exam Extremities Exam: Normal Inspection - Neurological Exam Neurological Exam: Alert, Awake, CN II-XII Intact, Oriented x3 - Psychiatric Exam Psychiatric exam: Normal Affect Assessment and Plan (1) Diabetes 1.5, managed as type 2 Status: Chronic (2) Hypertensive cardiovascular disease Status: Chronic (3) Abdominal hernia with obstruction Status: Acute (4) Abdominal pain Status: Acute (5) Obesity (BMI 35.0-39.9 without comorbidity) Status: Chronic - Assessment and Plan (Free Text) Assessment: Post OP ileus continue NPO, NGT and IVF Will follow with surgery Tachycardia f/u with cardiology restart beta adrien via NGT, EKG.
--- NOTE | 2016-07-13 12:02 | CP.PCM.CON ---
History of Present Illness - History of Present Illness History of Present Illness: THE PATIENT IS A 56 YEAR OLD FEMALE WHO UNDERWENT AN INCARCERATED VENTRAL HERNIA REPAIR YESTERDAY. SHE ALSO HAS A HISTORY OF HYPERTENSION, TYPE 2 DM, BREAST CA AND OVARIAN CA. SHE HAS AN NGT IN PLACE AND HAS BEEN NPO. CARDIOLOGY WAS CALLED TO SEE HER TODAY BECAUSE SHE WAS MILDLY TACHYCARDIC. SHE DENIES CHEST PAIN OR PALPITATIONS. SHE WAS ON METOPROLOL BEFORE SURGERY. SHE DENIES AND KNOWN HEART PROBLEMS BEFORE SURGERY SUCH CAD Past Patient History - Infectious Disease Hx of Infectious Diseases: None - Past Medical History & Family History Past Medical History?: Yes - Past Social History Alcohol: None Drugs: Denies - CARDIAC Hx Hypertension: Yes Hx Mitral Valve Prolapse: Yes - PULMONARY Hx Asthma: Yes - NEUROLOGICAL Hx Neurological Disorder: No - HEENT Other/Comment: uses contact lenses - RENAL Hx Chronic Kidney Disease: No - ENDOCRINE/METABOLIC Hx Endocrine Disorders: Yes Hx Diabetes Mellitus Type 2: Yes - HEMATOLOGICAL/ONCOLOGICAL Hx Blood Disorders: Yes - INTEGUMENTARY Hx Dermatological Problems: No - MUSCULOSKELETAL/RHEUMATOLOGICAL Hx Musculoskeletal Disorders: No Hx Falls: No - GASTROINTESTINAL Hx Gastrointestinal Disorders: Yes (LAP BAND DONE 10 YEARS AGO) - GENITOURINARY/GYNECOLOGICAL Hx Ovarian Cancer: Yes - PSYCHIATRIC Hx Psychophysiologic Disorder: No - SURGICAL HISTORY Hx Cholecystectomy: Yes Hx Tonsillectomy: Yes - ANESTHESIA Hx Anesthesia: Yes Hx Anesthesia Reactions: Yes (N/V) Hx Malignant Hyperthermia: No Has any member of the family had a problem w/ anesthesia?: No Meds Allergies/Adverse Reactions: Allergies Allergy/AdvReac Type Severity Reaction Status Date / Time doxycycline calcium AdvReac RASH Verified 12/09/15 08:41 [From Vibramycin] doxycycline hyclate AdvReac RASH Verified 12/09/15 08:41 [From Vibramycin] doxycycline monohydrate AdvReac RASH Verified 12/09/15 08:41 [From Vibramycin] latex AdvReac SWELLING Verified 12/09/15 08:42 - Medications Medications: Current Medications Diphenhydramine HCl (Benadryl) 25 mg IVP Q6 PRN PRN Reason: Itching / Pruritus Enoxaparin Sodium (Lovenox) 40 mg SC DAILY [facility] PRN Reason: Protocol Famotidine (Pepcid) 20 mg IVP DAILY [facility] Hydromorphone HCl (Dilaudid 0.2 Mg/Ml Tucking Machine Operator) 0 mg IV PRN PRN; Protocol PRN Reason: Pain, severe (8-10) Last Admin: 07/12/16 16:00 Dose: 0.2 mg Lactated Ringer's (Lactated Ringer's) 1,000 mls @ 150 mls/hr IV .Q6H40M [facility] Last Admin: 07/13/16 08:45 Dose: 150 mls/hr Metronidazole (Flagyl 500mg/100ml Ns) 100 mls @ 100 mls/hr IVPB Q8 [facility] Last Admin: 07/13/16 08:45 Dose: 100 mls/hr Insulin Human Regular (Humulin R) 0 units SC ACCU-CHECK [facility] PRN Reason: Protocol Last Admin: 07/13/16 06:36 Dose: 1 unit Ketorolac Tromethamine (Toradol) 15 mg IVP Q6 PRN PRN Reason: Pain, moderate (4-7) Last Admin: 07/12/16 06:26 Dose: 15 mg Metoprolol Tartrate (Lopressor) 12.5 mg PO Q12 [facility] Naloxone HCl (Narcan) 0.1 mg IVP Q2M PRN PRN Reason: Shortness of Breath Ondansetron HCl (Zofran Inj) 4 mg IVP Q4 PRN PRN Reason: Nausea/Vomiting Last Admin: 07/12/16 02:28 Dose: 4 mg Ondansetron HCl (Zofran Inj) 4 mg IVP Q8 PRN PRN Reason: Nausea/Vomiting Physical Exam - Respiratory Exam Respiratory Exam: Clear to Auscultation Bilateral - Cardiovascular Exam Cardiovascular Exam: Tachycardia, +S1, +S2 - GI/Abdominal Exam GI & Abdominal Exam: Hypoactive Bowel Sounds - Extremities Exam Extremities exam: Positive for: normal inspection - Additional Findings Additional findings: EKG ST, R 116 K+ 3.8 Results - Vital Signs Recent Vital Signs: Last Vital Signs Temp 99.4 F 07/13/16 09:57 Pulse 117 H 07/13/16 09:57 Resp 18 07/13/16 09:57 BP 109/65 07/13/16 09:57 Pulse Ox 96 07/13/16 09:57 - Labs Result Diagrams: 07/13/16 05:55 07/13/16 05:55 Labs: Laboratory Results - last 24 hr 07/12/16 07/12/1617 06:50 11:29 13:50 WBC RBC Hgb Hct MCV MCH MCHC RDW Plt Count Sodium Potassium Chloride Carbon Dioxide Anion Gap BUN Creatinine Est GFR ( Amer) Est GFR (Non-Af Amer) POC Glucose (mg/dL) 118 H Random Glucose Hemoglobin A1c 6.2 Calcium Urine Color Urine Clarity Urine pH Ur Specific [place] Urine Protein Urine Glucose (UA) Urine Ketones Urine Blood Urine Nitrate Urine Bilirubin Urine Urobilinogen Ur Leukocyte Esterase Urine RBC (Auto) Urine Microscopic WBC Urine Bacteria Blood Type O POSITIVE Antibody Screen Negative BBK History Checked Patient has bt 07/12/16 07/12/16 07/12/16 17:14 21:34 23:14 WBC RBC Hgb Hct MCV MCH MCHC RDW Plt Count Sodium Potassium Chloride Carbon Dioxide Anion Gap BUN Creatinine Est GFR ( Amer) Est GFR (Non-Af Amer) POC Glucose (mg/dL) 135 H 137 H Random Glucose Hemoglobin A1c Calcium Urine Color Yellow Urine Clarity Clear Urine pH 5.0 Ur Specific [place] 1.019 Urine Protein Negative Urine Glucose (UA) Neg Urine Ketones Negative Urine Blood Negative Urine Nitrate Negative Urine Bilirubin Negative Urine Urobilinogen 0.2-1.0 Ur Leukocyte Esterase Trace Urine RBC (Auto) 4 H Urine Microscopic WBC 4 Urine Bacteria Few H Blood Type Antibody Screen BBK History Checked 07/13/16 07/13/16 07/13/16 05:55 05:55 06:02 WBC 9.5 RBC 4.24 Hgb 12.5 Hct 37.5 MCV 88.6 MCH 29.4 MCHC 33.2 RDW 12.4 Plt Count 174 Sodium 137 Potassium 3.8 Chloride 104 Carbon Dioxide 27 Anion Gap 10 BUN 7 Creatinine 0.7 Est GFR ( Amer) > 60 Est GFR (Non-Af Amer) > 60 POC Glucose (mg/dL) 163 H Random Glucose 145 H Hemoglobin A1c Calcium 8.1 L Urine Color Urine Clarity Urine pH Ur Specific [place] Urine Protein Urine Glucose (UA) Urine Ketones Urine Blood Urine Nitrate Urine Bilirubin Urine Urobilinogen Ur Leukocyte Esterase Urine RBC (Auto) Urine Microscopic WBC Urine Bacteria Blood Type Antibody Screen BBK History Checked 07/13/16 10:56 WBC RBC Hgb Hct MCV MCH MCHC RDW Plt Count Sodium Potassium Chloride Carbon Dioxide Anion Gap BUN Creatinine Est GFR ( Amer) Est GFR (Non-Af Amer) POC Glucose (mg/dL) 114 H Random Glucose Hemoglobin A1c Calcium Urine Color Urine Clarity Urine pH Ur Specific [place] Urine Protein Urine Glucose (UA) Urine Ketones Urine Blood Urine Nitrate Urine Bilirubin Urine Urobilinogen Ur Leukocyte Esterase Urine RBC (Auto) Urine Microscopic WBC Urine Bacteria Blood Type Antibody Screen BBK History Checked Assessment & Plan - Assessment and Plan (Free Text) Assessment: S/P SURGICAL REPAIR OF INCARCERATED VENTRAL HERNIA HYPERTENSION TYPE 2 DM THE TACHYCARDIA AT THE PRESENT TIME IS MOST PROBABLY REFLEX TACHYCARDIA FROM BETA STEVEN WITHDRAWAL Plan: I SPOKE TO THE SURGEON WHO AGREED WITH METOPROLOL BID VIA THE NGT WITH CLAMPING OF THE NGT FOR ONE HOUR AFTER EACH DOSE ADMINISTRATION METOPROLOL ORDERED AT 12.5 MGS BID VIA THE NGT
[2016-07-13] MEDS: Enoxaparin 40 mg Syringe SC SCH (13:06)
[2016-07-14] MEDS: Lactated Ringer's 1,000 ML IV SCH (06:00)
[2016-07-14] MEDS: Insulin Regular 100 units/ml SC SCH ×5 (06:01→23:00)
[2016-07-14 06:54] LABS: BASO % 0.3 % (0.0-2.0); EOS # 0.2 K/uL (0.0-0.7); EOS % 2.2 % (0.0-4.0); HEMATOCRIT 35.8 % (34.0-47.0); LYMPH # 0.9 K/uL (1.0-4.3); LYMPH % 9.4 % (20.0-40.0); MEAN CORPUSCULAR HEMOGLOBIN 29.6 pg (27.0-31.0); MEAN CORPUSCULAR HGB CONC 33.6 g/dL (33.0-37.0); MEAN PLATELET VOLUME 9.4 fl (7.2-11.7); MONO # 0.8 K/uL (0.0-0.8); MONO % 8.1 % (0.0-10.0); NEUT # 7.8 K/uL (1.8-7.0); PLATELET COUNT 159 K/uL (130-400); RED CELL DISTRIBUTION WIDTH 12.3 % (11.5-14.5); WHITE BLOOD COUNT 9.7 K/uL (4.8-10.8)
[2016-07-14 07:31] LABS: BLOOD UREA NITROGEN 8 mg/dl (7-17); CALCIUM 8.4 mg/dL (8.4-10.2); CARBON DIOXIDE 27 mmol/L (22-30); CHLORIDE 105 mmol/L (98-107); GFR AFRICAN-AMERICAN > 60; GLUCOSE,RANDOM 107 mg/dL (65-105); POTASSIUM 3.6 MMOL/L (3.6-5.0); SODIUM 140 mmol/l (132-148)
--- NOTE | 2016-07-14 08:15 | CP.PCM.PN ---
<Speedy Diaz - Last Filed: 07/14/16 10:06> Subjective - Date & Time of Evaluation Date of Evaluation: 07/14/16 Time of Evaluation: 07:00 - Subjective Subjective: Patient seen and examined this morning, she is out of bed to chair. Reports improvement of abdominal pain. Denies chest pain/palpitations, SOB. No NGT output. Denies any abdominal distension. Abdominal binder in place. Objective - Vital Signs/Intake and Output Vital Signs (last 24 hours): Temp Pulse Resp BP Pulse Ox 98.7 F 106 H 20 118/79 96 07/14/16 00:03 07/14/16 00:03 07/14/16 00:03 07/14/16 00:03 07/14/16 00:03 Intake and Output: 07/14/16 07/14/16 06:59 18:59 Intake Total 1800 Output Total 0 Balance 1800 - Medications Medications: Current Medications Diphenhydramine HCl (Benadryl) 25 mg IVP Q6 PRN PRN Reason: Itching / Pruritus Enoxaparin Sodium (Lovenox) 40 mg SC DAILY [facility] PRN Reason: Protocol Last Admin: 07/13/16 13:06 Dose: 40 mg Famotidine (Pepcid) 20 mg IVP DAILY [facility] Last Admin: 07/13/16 13:22 Dose: 20 mg Hydromorphone HCl (Dilaudid) 0.5 mg IVP Q3H PRN PRN Reason: Pain, moderate (4-7) Last Admin: 07/14/16 00:32 Dose: 0.5 mg Lactated Ringer's (Lactated Ringer's) 1,000 mls @ 150 mls/hr IV .Q6H40M [facility] Last Admin: 07/14/16 06:00 Dose: 150 mls/hr Insulin Human Regular (Humulin R) 0 units SC ACCU-CHECK [facility] PRN Reason: Protocol Last Admin: 07/14/16 06:01 Dose: Not Given Ketorolac Tromethamine (Toradol) 15 mg IVP Q8 PRN PRN Reason: Pain, severe (8-10) Last Admin: 07/14/16 06:20 Dose: 15 mg Metoprolol Tartrate (Lopressor) 12.5 mg PO Q12 [facility] Last Admin: 07/13/16 21:44 Dose: 12.5 mg Naloxone HCl (Narcan) 0.1 mg IVP Q2M PRN PRN Reason: Shortness of Breath Ondansetron HCl (Zofran Inj) 4 mg IVP Q4 PRN PRN Reason: Nausea/Vomiting Last Admin: 07/12/16 02:28 Dose: 4 mg Ondansetron HCl (Zofran Inj) 4 mg IVP Q8 PRN PRN Reason: Nausea/Vomiting - Labs Labs: 07/14/16 05:30 07/14/16 05:30 - Constitutional Appears: No Acute Distress - Head Exam Head Exam: NORMOCEPHALIC - Eye Exam Eye Exam: Normal appearance - ENT Exam ENT Exam: Mucous Membranes Moist - Respiratory Exam Respiratory Exam: NORMAL BREATHING PATTERN - Cardiovascular Exam Cardiovascular Exam: +S1, +S2 - GI/Abdominal Exam GI & Abdominal Exam: Soft, Tenderness, Hypoactive Bowel Sounds Additional comments: mildly tender to palpation along surgical incision site - Neurological Exam Neurological Exam: Alert, Awake, Oriented x3 - Psychiatric Exam Psychiatric exam: Normal Mood - Skin Skin Exam: Normal Color, Warm Assessment and Plan - Assessment and Plan (Free Text) Assessment: 56F s/p open incision hernia repair w/ mesh placement -Will likely remove NGT this AM, if so will advance patient to [facility] -Abdominal binder -C/w analgesic -Encourage incentive spirometer use -Encourage ambulation -Further recs per Dr. Infante <Stepan Infante - Last Filed: 07/14/16 10:32> Subjective - Date & Time of Evaluation Time of Evaluation: 10:00 - Subjective Subjective: Patient was seen and examined at the bedside. Agree with resident's note above. Objective - Vital Signs/Intake and Output Vital Signs (last 24 hours): Temp Pulse Resp BP Pulse Ox 99 F 105 H 20 111/73 94 L 07/14/16 08:25 07/14/16 09:16 07/14/16 08:25 07/14/16 09:16 07/14/16 08:25 Intake and Output: 07/14/16 07/14/16 06:59 18:59 Intake Total 1800 Output Total 0 Balance 1800 - Medications Medications: Current Medications Diphenhydramine HCl (Benadryl) 25 mg IVP Q6 PRN PRN Reason: Itching / Pruritus Enoxaparin Sodium (Lovenox) 40 mg SC DAILY [facility] PRN Reason: Protocol Last Admin: 07/14/16 09:17 Dose: 40 mg Famotidine (Pepcid) 20 mg IVP DAILY [facility] Last Admin: 07/14/16 09:18 Dose: 20 mg Hydromorphone HCl (Dilaudid) 0.5 mg IVP Q3H PRN PRN Reason: Pain, moderate (4-7) Last Admin: 07/14/16 00:32 Dose: 0.5 mg Lactated Ringer's (Lactated Ringer's) 1,000 mls @ 150 mls/hr IV .Q6H40M [facility] Last Admin: 07/14/16 06:00 Dose: 150 mls/hr Insulin Human Regular (Humulin R) 0 units SC ACCU-CHECK [facility] PRN Reason: Protocol Last Admin: 07/14/16 06:01 Dose: Not Given Ketorolac Tromethamine (Toradol) 15 mg IVP Q8 PRN PRN Reason: Pain, severe (8-10) Last Admin: 07/14/16 06:20 Dose: 15 mg Metoprolol Tartrate (Lopressor) 12.5 mg PO Q12 [facility] Last Admin: 07/14/16 09:16 Dose: 12.5 mg Naloxone HCl (Narcan) 0.1 mg IVP Q2M PRN PRN Reason: Shortness of Breath Ondansetron HCl (Zofran Inj) 4 mg IVP Q4 PRN PRN Reason: Nausea/Vomiting Last Admin: 07/12/16 02:28 Dose: 4 mg Ondansetron HCl (Zofran Inj) 4 mg IVP Q8 PRN PRN Reason: Nausea/Vomiting - Labs Labs: 07/14/16 05:30 07/14/16 05:30 - GI/Abdominal Exam Additional comments: Incision clean, no erythema, no drainage
[2016-07-14] MEDS: Enoxaparin 40 mg Syringe SC SCH (09:17)
--- NOTE | 2016-07-14 10:05 | CP.PCM.PN ---
Subjective - Date & Time of Evaluation Date of Evaluation: 07/14/16 Time of Evaluation: 09:30 - Subjective Subjective: NO CHEST PAIN, PALPITATIONS OR SOB Objective - Vital Signs/Intake and Output Vital Signs (last 24 hours): Temp Pulse Resp BP Pulse Ox 99 F 105 H 20 111/73 94 L 07/14/16 08:25 07/14/16 09:16 07/14/16 08:25 07/14/16 09:16 07/14/16 08:25 Intake and Output: 07/14/16 07/14/16 06:59 18:59 Intake Total 1800 Output Total 0 Balance 1800 - Medications Medications: Current Medications Diphenhydramine HCl (Benadryl) 25 mg IVP Q6 PRN PRN Reason: Itching / Pruritus Enoxaparin Sodium (Lovenox) 40 mg SC DAILY [facility] PRN Reason: Protocol Last Admin: 07/14/16 09:17 Dose: 40 mg Famotidine (Pepcid) 20 mg IVP DAILY [facility] Last Admin: 07/14/16 09:18 Dose: 20 mg Hydromorphone HCl (Dilaudid) 0.5 mg IVP Q3H PRN PRN Reason: Pain, moderate (4-7) Last Admin: 07/14/16 00:32 Dose: 0.5 mg Lactated Ringer's (Lactated Ringer's) 1,000 mls @ 150 mls/hr IV .[id number] [facility] Last Admin: 07/14/16 06:00 Dose: 150 mls/hr Insulin Human Regular (Humulin R) 0 units SC ACCU-CHECK [facility] PRN Reason: Protocol Last Admin: 07/14/16 06:01 Dose: Not Given Ketorolac Tromethamine (Toradol) 15 mg IVP Q8 PRN PRN Reason: Pain, severe (8-10) Last Admin: 07/14/16 06:20 Dose: 15 mg Metoprolol Tartrate (Lopressor) 12.5 mg PO Q12 [facility] Last Admin: 07/14/16 09:16 Dose: 12.5 mg Naloxone HCl (Narcan) 0.1 mg IVP Q2M PRN PRN Reason: Shortness of Breath Ondansetron HCl (Zofran Inj) 4 mg IVP Q4 PRN PRN Reason: Nausea/Vomiting Last Admin: 07/12/16 02:28 Dose: 4 mg Ondansetron HCl (Zofran Inj) 4 mg IVP Q8 PRN PRN Reason: Nausea/Vomiting - Labs Labs: 07/14/16 05:30 07/14/16 05:30 - Respiratory Exam Respiratory Exam: Clear to Ausculation Bilateral - Cardiovascular Exam Cardiovascular Exam: Tachycardia, REGULAR RHYTHM, +S1, +S2 - Extremities Exam Extremities Exam: Normal Inspection - Additional Findings Additional findings: HEART RATE DECREASED TO 99 LAST EVENING HEART RATE 105 THIS AM(BEFORE METOPROLOL ADMINISTRATION) Assessment and Plan - Assessment and Plan (Free Text) Assessment: S/P VENTRAL HERNIA REPAIR SINUS TACHYCARDIA FROM BETA STEVEN WITHDRAWAL HYPERTENSION TYPE 2 DM Plan: CONTINUE METOPROLOL 12.5 MGS BID VIA NGT WITH I HOUR CLAMPING OF NGT
[2016-07-14] MEDS ORDERED: Oxycodone/Acetaminophen 5/325 mg Tab PO PRN (10:31)
[2016-07-14] MEDS ORDERED: HYDROmorphone 0.5 mg/0.5 ml ISec IVP PRN (10:31)
[2016-07-14 11:08] LABS: EOSINOPHIL 3 % (0-7); NEUTROPHIL 89 % (42-75); TOTAL CELLS COUNTED 100
--- NOTE | 2016-07-14 11:08 | CP.PCM.PN ---
Subjective - Date & Time of Evaluation Date of Evaluation: 07/14/16 Time of Evaluation: 11:08 - Subjective Subjective: Patient more comfortable, still same abdominal pain but improving. No flatus No BM. Objective - Vital Signs/Intake and Output Vital Signs (last 24 hours): Temp Pulse Resp BP Pulse Ox 99 F 105 H 20 111/73 94 L 07/14/16 08:25 07/14/16 09:16 07/14/16 08:25 07/14/16 09:16 07/14/16 08:25 Intake and Output: 07/13/16 07/14/16 23:59 11:59 Intake Total 1800 Output Total 0 0 Balance 0 1800 - Medications Medications: Current Medications Diphenhydramine HCl (Benadryl) 25 mg IVP Q6 PRN PRN Reason: Itching / Pruritus Enoxaparin Sodium (Lovenox) 40 mg SC DAILY [facility] PRN Reason: Protocol Last Admin: 07/14/16 09:17 Dose: 40 mg Famotidine (Pepcid) 20 mg IVP DAILY [facility] Last Admin: 07/14/16 09:18 Dose: 20 mg Hydromorphone HCl (Dilaudid) 0.5 mg IVP Q3H PRN PRN Reason: Pain, severe (8-10) Sodium Chloride (Sodium Chloride 0.9%) 1,000 mls @ 85 mls/hr IV .[id number] [facility] Stop: 07/15/16 11:03 Insulin Human Regular (Humulin R) 0 units SC ACCU-CHECK [facility] PRN Reason: Protocol Last Admin: 07/14/16 06:01 Dose: Not Given Ketorolac Tromethamine (Toradol) 15 mg IVP Q8 PRN PRN Reason: Pain, severe (8-10) Last Admin: 07/14/16 06:20 Dose: 15 mg Metoprolol Tartrate (Lopressor) 12.5 mg PO Q12 [facility] Last Admin: 07/14/16 09:16 Dose: 12.5 mg Naloxone HCl (Narcan) 0.1 mg IVP Q2M PRN PRN Reason: Shortness of Breath Ondansetron HCl (Zofran Inj) 4 mg IVP Q4 PRN PRN Reason: Nausea/Vomiting Last Admin: 07/12/16 02:28 Dose: 4 mg Ondansetron HCl (Zofran Inj) 4 mg IVP Q8 PRN PRN Reason: Nausea/Vomiting Oxycodone/Acetaminophen (Percocet 5/325 Mg Tab) 1 tab PO Q4 PRN PRN Reason: Pain, moderate (4-7) Stop: 07/17/16 10:32 - Labs Labs: 07/14/16 05:30 07/14/16 05:30 - Head Exam Head Exam: ATRAUMATIC, NORMAL INSPECTION, NORMOCEPHALIC - Eye Exam Eye Exam: Normal appearance, PERRL - ENT Exam ENT Exam: Mucous Membranes Moist - Neck Exam Neck Exam: Full ROM - Respiratory Exam Respiratory Exam: Clear to Ausculation Bilateral - Cardiovascular Exam Cardiovascular Exam: REGULAR RHYTHM, +S1, +S2 - GI/Abdominal Exam GI & Abdominal Exam: Hypoactive Bowel Sounds - Extremities Exam Extremities Exam: Full ROM - Neurological Exam Neurological Exam: Alert, Awake, CN II-XII Intact, Oriented x3 - Psychiatric Exam Psychiatric exam: Normal Affect Assessment and Plan (1) Diabetes 1.5, managed as type 2 Status: Chronic (2) Hypertensive cardiovascular disease Status: Chronic (3) Abdominal hernia with obstruction Status: Acute (4) Abdominal pain Status: Acute (5) Obesity (BMI 35.0-39.9 without comorbidity) Status: Chronic (6) UTI (urinary tract infection) Status: Acute (7) SBO (small bowel obstruction) Status: Acute - Assessment and Plan (Free Text) Plan: Will start on clear liquid diet, still poor peristalsis. Will follow. Continue iv hydration. Will follow with surgery.
[2016-07-14] MEDS: Sodium Chloride 0.9% 1,000 ML IV SCH ×2 (14:59→23:00)
[2016-07-14] MEDS: Ciprofloxacin 400mg/200ml D5W 400 MG/200 ML BAG IVPB SCH ×2 (14:59→20:41)
[2016-07-15] MEDS: Insulin Regular 100 units/ml SC SCH ×2 (06:34→10:59)
--- NOTE | 2016-07-15 07:19 | CARD ---
APPROVED REPORT EKG Measurement Heart [id number] <Conclusion> Sinus tachycardia Nonspecific T wave abnormality Abnormal ECG
[2016-07-15 08:18] VITALS: BP 129/85; PULSE 99; RESP 18; TEMP 98.3; O2SAT 96
--- NOTE | 2016-07-15 08:23 | CP.PCM.PN ---
<CedStacie - Last Filed: 07/15/16 08:20> Subjective - Date & Time of Evaluation Date of Evaluation: 07/15/16 Time of Evaluation: 08:20 - Subjective Subjective: General Surgery - Dr. Infante Pt S&EJohn RUST. PT states her pain is much better today. She has been ambulating in the halls and tolerating clear liquid diet. Pt states she is passing flatus, but no BM yet. She denies any F/C, N/V, SOb/Cp. Objective - Vital Signs/Intake and Output Vital Signs (last 24 hours): Temp Pulse Resp BP Pulse Ox 98.3 F 99 H 18 129/85 96 07/15/16 08:18 07/15/16 08:18 07/15/16 08:18 07/15/16 08:18 07/15/16 08:18 - Medications Medications: Current Medications Diphenhydramine HCl (Benadryl) 25 mg IVP Q6 PRN PRN Reason: Itching / Pruritus Enoxaparin Sodium (Lovenox) 40 mg SC DAILY [facility] PRN Reason: Protocol Last Admin: 07/14/16 09:17 Dose: 40 mg Famotidine (Pepcid) 20 mg IVP DAILY [facility] Last Admin: 07/14/16 09:18 Dose: 20 mg Sodium Chloride (Sodium Chloride 0.9%) 1,000 mls @ 85 mls/hr IV .[id number] [facility] Stop: 07/15/16 11:03 Last Admin: 07/14/16 23:00 Dose: Not Given Ciprofloxacin (Cipro 400mg/200ml Dsw) 400 mg in 200 mls @ 200 mls/hr IVPB Q12 [facility] Last Admin: 07/14/16 20:41 Dose: 200 mls/hr Insulin Human Regular (Humulin R) 0 units SC ACCU-CHECK [facility] PRN Reason: Protocol Last Admin: 07/15/16 06:34 Dose: Not Given Ketorolac Tromethamine (Toradol) 15 mg IVP Q8 PRN PRN Reason: Pain, severe (8-10) Last Admin: 07/14/16 06:20 Dose: 15 mg Metoprolol Tartrate (Lopressor) 12.5 mg PO Q12 [facility] Last Admin: 07/14/16 20:40 Dose: 12.5 mg Naloxone HCl (Narcan) 0.1 mg IVP Q2M PRN PRN Reason: Shortness of Breath Ondansetron HCl (Zofran Inj) 4 mg IVP Q4 PRN PRN Reason: Nausea/Vomiting Last Admin: 07/12/16 02:28 Dose: 4 mg Oxycodone/Acetaminophen (Percocet 5/325 Mg Tab) 1 tab PO Q4 PRN PRN Reason: Pain, moderate (4-7) Stop: 07/17/16 10:32 Last Admin: 07/14/16 20:45 Dose: 1 tab - Labs Labs: 07/14/16 05:30 07/14/16 05:30 - Constitutional Appears: No Acute Distress - Head Exam Head Exam: ATRAUMATIC, NORMAL INSPECTION, NORMOCEPHALIC - Eye Exam Eye Exam: Normal appearance - ENT Exam ENT Exam: Mucous Membranes Moist - Respiratory Exam Respiratory Exam: NORMAL BREATHING PATTERN. absent: Respiratory Distress - Cardiovascular Exam Cardiovascular Exam: REGULAR RHYTHM - GI/Abdominal Exam GI & Abdominal Exam: Soft. absent: Distended, Guarding, Rigid, Tenderness, Rebound Additional comments: midline incision C/D/i with brendan Abdominal binder in place - Neurological Exam Neurological Exam: Alert, Oriented x3 - Psychiatric Exam Psychiatric exam: Normal Affect, Normal Mood - Skin Skin Exam: Dry, Intact Assessment and Plan - Assessment and Plan (Free Text) Assessment: 56F s/p incisional hernia repair w/ mesh -Doing well post-operatively -Advance to soft diet -Encourage Ambulation -Encourage IS Dw Dr. Arelis Coughlin PGY2 <Stepan Infante - Last Filed: 07/15/16 10:31> Subjective - Date & Time of Evaluation Time of Evaluation: 10:00 - Subjective Subjective: Patient was seen and examined at the bedside. Agree with resident's note above. Objective - Vital Signs/Intake and Output Vital Signs (last 24 hours): Temp Pulse Resp BP Pulse Ox 98.3 F 99 H 18 129/85 96 07/15/16 08:18 07/15/16 08:18 07/15/16 08:18 07/15/16 08:18 07/15/16 08:18 - Medications Medications: Current Medications Diphenhydramine HCl (Benadryl) 25 mg IVP Q6 PRN PRN Reason: Itching / Pruritus Enoxaparin Sodium (Lovenox) 40 mg SC DAILY [facility] PRN Reason: Protocol Last Admin: 07/15/16 09:04 Dose: 40 mg Famotidine (Pepcid) 20 mg IVP DAILY [facility] Last Admin: 07/15/16 09:05 Dose: 20 mg Sodium Chloride (Sodium Chloride 0.9%) 1,000 mls @ 85 mls/hr IV .[id number] [facility] Stop: 07/15/16 11:03 Last Admin: 07/14/16 23:00 Dose: Not Given Ciprofloxacin (Cipro 400mg/200ml Dsw) 400 mg in 200 mls @ 200 mls/hr IVPB Q12 [facility] Last Admin: 07/15/16 09:02 Dose: 200 mls/hr Insulin Human Regular (Humulin R) 0 units SC ACCU-CHECK [facility] PRN Reason: Protocol Last Admin: 07/15/16 06:34 Dose: Not Given Ketorolac Tromethamine (Toradol) 15 mg IVP Q8 PRN PRN Reason: Pain, severe (8-10) Last Admin: 07/14/16 06:20 Dose: 15 mg Metoprolol Tartrate (Lopressor) 12.5 mg PO Q12 [facility] Last Admin: 07/15/16 09:04 Dose: 12.5 mg Naloxone HCl (Narcan) 0.1 mg IVP Q2M PRN PRN Reason: Shortness of Breath Ondansetron HCl (Zofran Inj) 4 mg IVP Q4 PRN PRN Reason: Nausea/Vomiting Last Admin: 07/12/16 02:28 Dose: 4 mg Oxycodone/Acetaminophen (Percocet 5/325 Mg Tab) 1 tab PO Q4 PRN PRN Reason: Pain, moderate (4-7) Stop: 07/17/16 10:32 Last Admin: 07/14/16 20:45 Dose: 1 tab - Labs Labs: 07/15/16 08:47 07/15/16 08:47 Assessment and Plan - Assessment and Plan (Free Text) Plan: - Start regular diet - Pain control - Patient is clear for discharge home from the surgical stand point - Patient will follow up with me in the office for post-op visit in 10 days to 2 weeks
[2016-07-15 08:55] LABS: MEAN CELL VOLUME 87.5 fl (81.0-99.0); MEAN CORPUSCULAR HEMOGLOBIN 29.5 pg (27.0-31.0); MEAN CORPUSCULAR HGB CONC 33.8 g/dL (33.0-37.0); RED CELL DISTRIBUTION WIDTH 12.1 % (11.5-14.5); WHITE BLOOD COUNT 7.6 K/uL (4.8-10.8)
[2016-07-15] MEDS: Ciprofloxacin 400mg/200ml D5W 400 MG/200 ML BAG IVPB SCH (09:02)
[2016-07-15] MEDS: Enoxaparin 40 mg Syringe SC SCH (09:04)
[2016-07-15 09:13] LABS: BLOOD UREA NITROGEN 8 mg/dl (7-17); CALCIUM 8.7 mg/dL (8.4-10.2); CARBON DIOXIDE 27 mmol/L (22-30); CHLORIDE 104 mmol/L (98-107); GFR AFRICAN-AMERICAN > 60; GLUCOSE,RANDOM 107 mg/dL (65-105); POTASSIUM 3.7 MMOL/L (3.6-5.0); SODIUM 140 mmol/l (132-148)
--- NOTE | 2016-07-15 09:24 | CP.PCM.PN ---
Subjective - Date & Time of Evaluation Date of Evaluation: 07/15/16 Time of Evaluation: 08:15 - Subjective Subjective: NO CHEST PAIN, SOB OR PALPITATIONS NGT REMOVED AND TOLERATING LIQUID DIET Objective - Vital Signs/Intake and Output Vital Signs (last 24 hours): Temp Pulse Resp BP Pulse Ox 98.3 F 99 H 18 129/85 96 07/15/16 08:18 07/15/16 08:18 07/15/16 08:18 07/15/16 08:18 07/15/16 08:18 - Medications Medications: Current Medications Diphenhydramine HCl (Benadryl) 25 mg IVP Q6 PRN PRN Reason: Itching / Pruritus Enoxaparin Sodium (Lovenox) 40 mg SC DAILY [facility] PRN Reason: Protocol Last Admin: 07/15/16 09:04 Dose: 40 mg Famotidine (Pepcid) 20 mg IVP DAILY [facility] Last Admin: 07/15/16 09:05 Dose: 20 mg Sodium Chloride (Sodium Chloride 0.9%) 1,000 mls @ 85 mls/hr IV .[id number] [facility] Stop: 07/15/16 11:03 Last Admin: 07/14/16 23:00 Dose: Not Given Ciprofloxacin (Cipro 400mg/200ml Dsw) 400 mg in 200 mls @ 200 mls/hr IVPB Q12 [facility] Last Admin: 07/15/16 09:02 Dose: 200 mls/hr Insulin Human Regular (Humulin R) 0 units SC ACCU-CHECK [facility] PRN Reason: Protocol Last Admin: 07/15/16 06:34 Dose: Not Given Ketorolac Tromethamine (Toradol) 15 mg IVP Q8 PRN PRN Reason: Pain, severe (8-10) Last Admin: 07/14/16 06:20 Dose: 15 mg Metoprolol Tartrate (Lopressor) 12.5 mg PO Q12 [facility] Last Admin: 07/15/16 09:04 Dose: 12.5 mg Naloxone HCl (Narcan) 0.1 mg IVP Q2M PRN PRN Reason: Shortness of Breath Ondansetron HCl (Zofran Inj) 4 mg IVP Q4 PRN PRN Reason: Nausea/Vomiting Last Admin: 07/12/16 02:28 Dose: 4 mg Oxycodone/Acetaminophen (Percocet 5/325 Mg Tab) 1 tab PO Q4 PRN PRN Reason: Pain, moderate (4-7) Stop: 07/17/16 10:32 Last Admin: 07/14/16 20:45 Dose: 1 tab - Labs Labs: 07/15/16 08:47 07/15/16 08:47 - Respiratory Exam Respiratory Exam: Clear to Ausculation Bilateral - Cardiovascular Exam Cardiovascular Exam: REGULAR RHYTHM, +S1, +S2 - Extremities Exam Extremities Exam: Normal Inspection - Additional Findings Additional findings: HEART RATE 80'S TO 90'S AFTER METOPROLOL WAS RESUMED Assessment and Plan - Assessment and Plan (Free Text) Assessment: STABLE CARDIAC STATUS HYPERTENSION S/P VENTRAL HERNIA REPAIR Plan: CONTINUE METOPROLOL AND LOVENOX NGT HAS BEEN REMOVED DIET ADVANCEMENT PER SURGERY
[2016-07-15] MEDS: Sodium Chloride 0.9% 1,000 ML IV SCH (10:59)
--- NOTE | 2016-07-15 11:53 | CP.PCM.DIS ---
Provider - Provider Date of Admission: 07/11/16 23:34 Attending physician: Ranjeet Dominguez MD Time Spent in preparation of Discharge (in minutes): 30 Diagnosis - Discharge Diagnosis (1) Diabetes 1.5, managed as type 2 Status: Chronic (2) Hypertensive cardiovascular disease Status: Chronic (3) Abdominal hernia with obstruction Status: Acute (4) Abdominal pain Status: Acute (5) Obesity (BMI 35.0-39.9 without comorbidity) Status: Chronic (6) UTI (urinary tract infection) Status: Acute (7) SBO (small bowel obstruction) Status: Acute Hospital Course - Lab Results Lab Results: Most Recent Lab Values WBC 7.6 K/uL (4.8-10.8) 07/15/16 08:47 RBC 4.00 Mil/uL (3.80-5.20) 07/15/16 08:47 Hgb 11.8 g/dL (12.0-16.0) L 07/15/16 08:47 Hct 35.0 % (34.0-47.0) 07/15/16 08:47 MCV 87.5 fl (81.0-99.0) 07/15/16 08:47 MCH 29.5 pg (27.0-31.0) 07/15/16 08:47 MCHC 33.8 g/dL (33.0-37.0) 07/15/16 08:47 RDW 12.1 % (11.5-14.5) 07/15/16 08:47 Plt Count 180 K/uL (130-400) 07/15/16 08:47 MPV 9.4 fl (7.2-11.7) 07/14/16 05:30 Neut % (Auto) 80.0 % (50.0-75.0) H 07/14/16 05:30 Lymph % (Auto) 9.4 % (20.0-40.0) L 07/14/16 05:30 [place] % (Auto) 8.1 % (0.0-10.0) 07/14/16 05:30 Eos % (Auto) 2.2 % (0.0-4.0) 07/14/16 05:30 Baso % (Auto) 0.3 % (0.0-2.0) 07/14/16 05:30 Neut # 7.8 K/uL (1.8-7.0) H 07/14/16 05:30 Lymph # 0.9 K/uL (1.0-4.3) L 07/14/16 05:30 [place] # 0.8 K/uL (0.0-0.8) 07/14/16 05:30 Eos # 0.2 K/uL (0.0-0.7) 07/14/16 05:30 Baso # 0.0 K/uL (0.0-0.2) 07/14/16 05:30 Neutrophils % (Manual) 89 % (42-75) H 07/14/16 05:30 Lymphocytes % (Manual) 6 % (20-50) L 07/14/16 05:30 Monocytes % (Manual) 2 % (0-10) 07/14/16 05:30 Eosinophils % (Manual) 3 % (0-7) 07/14/16 05:30 Platelet Estimate Normal (NORMAL) 07/14/16 05:30 RBC Morphology Normal (NORMAL) 07/14/16 05:30 Sodium 140 mmol/l (132-148) 07/15/16 08:47 Potassium 3.7 MMOL/L (3.6-5.0) 07/15/16 08:47 Chloride 104 mmol/L (98-107) 07/15/16 08:47 Carbon Dioxide 27 mmol/L (22-30) 07/15/16 08:47 Anion Gap 13 (10-20) 07/15/16 08:47 BUN 8 mg/dl (7-17) 07/15/16 08:47 Creatinine 0.7 mg/dL (0.7-1.2) 07/15/16 08:47 Est GFR ( Amer) > 60 07/15/16 08:47 Est GFR (Non-Af Amer) > 60 07/15/16 08:47 POC Glucose (mg/dL) 127 mg/dL (65-110) H 07/15/16 10:52 Random Glucose 107 mg/dL (65-105) H 07/15/16 08:47 Hemoglobin A1c 6.2 % (4.2-6.5) 07/12/16 06:50 Lactic Acid 1.3 MMOL/L (0.7-2.1) 07/11/16 19:54 Calcium 8.7 mg/dL (8.4-10.2) 07/15/16 08:47 Total Bilirubin 0.4 mg/dl (0.2-1.3) 07/11/16 19:54 AST 50 U/L (14-36) H 07/11/16 19:54 ALT 87 U/L (9-52) H 07/11/16 19:54 Alkaline Phosphatase 101 U/L (38-126) 07/11/16 19:54 Total Protein 8.0 G/DL (6.3-8.2) 07/11/16 19:54 Albumin 4.6 g/dL (3.5-5.0) 07/11/16 19:54 Globulin 3.4 gm/dL (2.2-3.9) 07/11/16 19:54 Albumin/Globulin Ratio 1.3 (1.0-2.1) 07/11/16 19:54 Lipase 228 U/L (23-300) 07/11/16 19:54 TSH 3rd Generation 0.84 mIU/ML (0.46-4.68) 07/12/16 06:50 Urine Color Yellow (YELLOW) 07/12/16 23:14 Urine Clarity Clear (Clear) 07/12/16 23:14 Urine pH 5.0 (5.0-8.0) 07/12/16 23:14 Ur Specific [place] 1.019 (1.003-1.030) 07/12/16 23:14 Urine Protein Negative mg/dL (NEGATIVE) 07/12/16 23:14 Urine Glucose (UA) Neg mg/dL (Normal) 07/12/16 23:14 Urine Ketones Negative mg/dL (NEGATIVE) 07/12/16 23:14 Urine Blood Negative (NEGATIVE) 07/12/16 23:14 Urine Nitrate Negative (NEGATIVE) 07/12/16 23:14 Urine Bilirubin Negative (NEGATIVE) 07/12/16 23:14 Urine Urobilinogen 0.2-1.0 mg/dL (0.2-1.0) 07/12/16 23:14 Ur Leukocyte Esterase Trace [place]/uL (Negative) 07/12/16 23:14 Urine RBC (Auto) 4 /hpf (0-3) H 07/12/16 23:14 Urine Microscopic WBC 4 /hpf (0-5) 07/12/16 23:14 Urine Bacteria Few (<OCC) H 07/12/16 23:14 Blood Type O POSITIVE 07/12/16 11:29 Antibody Screen Negative 07/12/16 11:29 BBK History Checked Patient has bt 07/12/16 11:29 - Hospital Course Hospital Course: Patient presented with ileus secondary to incarcerated hernia. The patient underwent to surgery to repair the hernia. In post OP the ileus did not resolve. She was NPO on ivf. The day of D/C she well tolerated her PO intake and she was discarded home with the recommendation to follow with the surgery. Discharge Exam - Head Exam Head Exam: ATRAUMATIC, NORMAL INSPECTION, NORMOCEPHALIC - Eye Exam Eye Exam: EOMI, Normal appearance, PERRL - ENT Exam ENT Exam: Mucous Membranes Dry - Respiratory Exam Respiratory Exam: Clear to PA & Lateral - Cardiovascular Exam Cardiovascular Exam: REGULAR RHYTHM, +S1, +S2 - GI/Abdominal Exam GI & Abdominal Exam: Normal Bowel Sounds - Neurological Exam Neurological exam: Alert, CN II-XII Intact, Normal Gait, Oriented x3, Reflexes Normal - Psychiatric Exam Psychiatric exam: Normal Affect Discharge Plan - Follow Up Plan Condition: FAIR Disposition: HOME/ ROUTINE Instructions: Preventing Infections (GEN), Bowel Obstruction (DC) Referrals: John Padron MD [Staff Provider] - Tony Meraz MD [Staff Provider] - Ranjeet Dominguez MD [Family Provider] -
== END 2016-07-15 13:09 | disposition home or self-care (01) | DRG 150 ==
LOC: H.ER 18:28 → H.ERHOLD 23:34 → H.MEDSURG1 07-12 01:21
PROVIDERS: ADMIT Internal Medicine; ATTEND Internal Medicine
PROC: 0DNE0ZZ Release Large Intestine, Open Approach (ICD-10-PCS; 2016-07-12)
PROC: 0WUF0JZ Supplement Abdominal Wall with Synthetic Substitute, Open Approach (ICD-10-PCS; principal; 2016-07-12 10:30)
DX: K43.0 Incisional hernia with obstruction, without gangrene (principal); N39.0 Urinary tract infection, site not specified; K91.3 Postprocedural intestinal obstruction; I11.9 Hypertensive heart disease without heart failure; E66.9 Obesity, unspecified; Z68.35 Body mass index [BMI] 35.0-35.9, adult; E11.9 Type 2 diabetes mellitus without complications; I34.1 Nonrheumatic mitral (valve) prolapse; J45.909 Unspecified asthma, uncomplicated; R00.0 Tachycardia, unspecified; Z85.3 Personal history of malignant neoplasm of breast; Z85.43 Personal history of malignant neoplasm of ovary; Z90.710 Acquired absence of both cervix and uterus; Z92.3 Personal history of irradiation; Z91.040 Latex allergy status; Z88.3 Allergy status to other anti-infective agents